=== PATIENT | male | born 1970 | race American Indian/Alaskan Native ===

== ENCOUNTER 2021-08-13 19:33 | Emergency (ER) | payer SELFPAY ==
--- NOTE | 2021-08-14 12:33 | Electrocardiograph Report ---
[facility] Test Date: 2021-08-13 Test Time: 21:20:07 Pat Name: EMORY CLAROS Department: Room: Gender: M [employer]: [id number] : 1970 Requested By: CHRISTA RO Order Number: [id number] Reading MD: Jim Mcfadden Measurements Intervals [place] Rate: 91 P: 76 GA: 139 QRS: 70 QRSD: 91 T: 72 QT: 355 QTc: 437 Interpretive Statements Sinus rhythm Probable left atrial enlargement Probable left ventricular hypertrophy ST elevation,probably secondary to LVH, consider anterior injury No previous ECG available for comparison Electronically Signed On 08-14-2021 12:33:27 EDT by Jim Mcfadden
== END 2021-08-14 08:10 | disposition left against medical advice (07) ==
LOC: ED 19:33
DX: M79.18 Myalgia, other site (principal); Z53.21 Procedure and treatment not carried out due to patient leaving prior to being seen by health care provider
CPT/HCPCS: 93005